=== PATIENT | female | born 1970 | race Caucasian/White ===

== ENCOUNTER 2025-01-18 21:47 | Emergency (ER) | payer BC, SELFPAY ==
[2025-01-18 21:49] VITALS: BP 128/74
--- NOTE | 2025-01-18 23:43 | ED.GENMED ---
History of Present Illness
General
Chief Complaint: Musculo-Skeletal Complaint
Source: patient
Exam Limitations: none
Time Seen by Provider: 01/18/25 21:57
Nursing documentation reviewed up to this point in time: agreed with
History of Present Illness
History of Present Illness:
Patient is a 54-year-old female who presents to the emergency department with left ankle injury. Patient states she stood up after eating dinner this evening, lost her footing and and inverted her left ankle. Patient states that she was able to
walk [place] the train station [place] was 3 blocks [place] however noticed that her ankle was very swollen. No numbness/tingling in left lower extremity. No pain in left knee or left hip.
She denies any head strike or associated loss of consciousness. No other injuries sustained.
Past History
Past History
ED Past Medical History: None
Social History
Personal: Single
Employment: Employed
Review of Systems
Review of Systems
Allergies reviewed?: Yes
All Other Systems: ROS reviewed and negative except as documented in HPI and ROS
Phy Exam
Physical Exam
Physical Exam:
Vitals: Patient's vital signs are stable. Afebrile
General: Patient is well appearing, no acute distress
Skin: Warm and dry, no rashes or lesions
Head: Normocephalic, atraumatic
Throat: Protecting airway
Neck: Normal ROM, no cervical spine tenderness
Cardiac: Regular rate
Pulm: No apparent respiratory distress
Abdomen: Nondistended
Extremities: Swelling of left ankle most notable around left lateral malleolus. Mild point tenderness to left lateral malleolus. No tenderness to left medial malleolus or calcaneus. No tenderness at head of left fibula or base of left fifth
metatarsal. No midfoot tenderness. Patient has decent ability to plantarflex/dorsiflex left ankle. Full range of motion in left knee and left hip without pain. 2+ palpable DP pulse of LLE. Cap refill WNL. Sensation intact.
Neuro: Grossly intact
Psychiatric: Normal affect.
Course
Orders/Labs/Results
Orders:
Orders
01/18/25 21:52
Ankle, left 3 view CR [CR Ankle - Left Min 3 Views ] Urgent
Comment:
Reason For Exam: ANKLE GAVE OUT AND ROLLED
01/18/25 23:42
Splints/Slings/Crut- Treatment ONCE
Crutches: Yes
Location: Left
Type of Splint: Short Leg
Vital Signs
Initial and Last Documented VS:
Initial Vital Signs
Temp Pulse Resp BP Pulse Ox
97.4 F 64 16 128/74 100
01/18/25 21:49 01/18/25 21:49 01/18/25 21:49 01/18/25 21:49 01/18/25 21:49
Last Documented Vital Signs
Temp Pulse Resp BP Pulse Ox
97.4 F 64 16 128/74 100
01/18/25 21:49 01/18/25 21:49 01/18/25 21:49 01/18/25 21:49 01/18/25 21:49
Procedures
Splint Check
Splint checked by provider?: Yes
Circulation/Movement/Sensation post splint application: brisk cap refill and full sensation
MDM/Problems Addressed
Differential Diagnosis Includes:
Not limited to: Ankle sprain, ankle fracture, foot sprain, foot fracture, Achilles tendon rupture, etc.
MDM/Problems Addressed:
54-year-old female presenting with left ankle injury. Patient states she lost her footing and inverted her left ankle after standing up from her table at a restaurant. She has been able to ambulate although with pain and significant swelling of left
ankle. No numbness/tingling in left ankle/foot. No other associated injuries. Vitals stable. Physical exam as above.
X-ray of left angle shows small non-displaced fracture of left distal tibia likely the tibial plafond. x-ray imaging discussed with orthopedics. Plan will be for posterior short leg splint, crutches, discharge home with outpatient orthopedic follow
up.
Post short leg splint applied. Patient tolerated procedure well. She�s ambulating on crutches without difficulty. She will be discharged with return precautions and outpatient ortho follow up. Patient comfrotable w/ plan.
Chronic conditions affecting care:
N/A
Acute Exacerbation and/or Progression of Chronic Illness:
N/A
*Radiology
Radiology exam reviewed: preliminary read by ED provider and radiology read reviewed (Nondisplaced fracture at anterior margin of left tibial plafond)
*Pulse Oximetry
Patient hypoxic: no
*EKG
Interpreted by ED Provider?: NA
*Intelligence Specialist Interpretation
Rate: Intelligence Specialist- N/A
*Critical Care Note
Total Time (30-74mins, 75-104mins- exclusive of procedures): Not Applicable
Patient Management
Discussion with other providers: Drafter Refrigeration (Case discussed with orthopedics)
ED Attending Note
-
Portions of this chart may have been created with voice recognition software.� Occasional wrong word or��sound alike� substitutions may have occurred due to the inherent limitations of voice recognition software.
Discharge Plan
Departure
Patient Disposition: Home (Routine Discharge)
Date of Disposition: 01/18/25
Time of Disposition: 23:44
Patient with high blood pressure during this ER visit?: Yes
Condition: Good
Covid-19: Not Applicable
Discharge Problem:
Closed fracture of left tibial plafond without fibula involvement
Instructions: Ankle Fracture (DC), Splint Care, BLOOD PRESSURE
Prescriptions:
No Action
No Current Medications
0
Referrals:
Dennis Roblero MD [Active] - Next open appointment
Andra Thacker MD [Family Provider]
Activity Restrictions/Additional Instructions:
RETURN TO THE EMERGENCY DEPARTMENT FOR ANY INTRACTABLE PAIN, NUMBNESS/TINGLING OF LEFT ANKLE/FOOT, SEVERE SWELLING IN LEFT LOWER EXTREMITY, WORSENING OF CURRENT SYMPTOMS, OR ANY OTHER CONCERNS
- As discussed�your x-ray showed a fracture of your left tibial plafond. You were placed in a splint in the emergency department. You should remain nonweightbearing until cleared by orthopedics and can use crutches to assist with ambulation.
- Continue to ice and elevate your left ankle often over the next 2 days. You can take Tylenol and/or Motrin as needed for pain.
- Follow-up with orthopedics for further evaluation/management. The contact information has been provided for you above.
Monitor your symptoms closely and return to the emergency department with any acute worsening/new symptoms or any other concerns
Interventions
Interventions:
*Risk Screen - Suicide Last Done: 01/18/25 21:49
*General Assessment Last Done: 01/18/25 21:57
*Neglect/Abuse Screening Last Done: 01/18/25 21:49
*ED COVID-19 Vaccine History Last Done: 01/18/25 21:57
*Nursing Disposition Last Done: 01/19/25 00:09
ED-Musculoskeletal Assessment Last Done: 01/18/25 22:04
Discharge Date and Time
Discharge Date/Time: 01/19/25 00:09
Print Language: CITIZEN [place]
== END 2025-01-19 00:09 | disposition home or self-care (01) ==
LOC: EMR 21:47
PROVIDERS: EMERGENCY PHYSICIAN Emergency Medicine; FAMILY PHYSICIAN Obstetrics & Gynecology
DX: S82.202A Unspecified fracture of shaft of left tibia, initial encounter for closed fracture (principal); X50.1XXA Overexertion from prolonged static or awkward postures, initial encounter; Y93.9 Activity, unspecified
CPT/HCPCS: 99283; 29515; 73610

== ENCOUNTER 2025-04-13 09:33 | Outpatient (RCR) | payer BC, SELFPAY | END 2025-04-13 23:59 | disposition home or self-care (01) | LOC: RPT 09:33 | PROVIDERS: ATTENDING PHYSICIAN Physician Assistant | DX: S82.892D Other fracture of left lower leg, subsequent encounter for closed fracture with routine healing (principal); S93.492D Sprain of other ligament of left ankle, subsequent encounter; Z73.6 Limitation of activities due to disability; M62.81 Muscle weakness (generalized); X50.1XXD Overexertion from prolonged static or awkward postures, subsequent encounter | CPT/HCPCS: 97110; 97161 ==